=== PATIENT | male | born 2000 ===

== ENCOUNTER 2019-05-15 21:35 | Emergency (ER) | payer OTHER ==
--- NOTE | 2019-05-15 21:55 | ER Document Report ---
ED Medical Screen (RME) - General Chief Complaint: Testicular Pain Stated Complaint: GROIN PAIN Time Seen by Provider: 05/15/19 21:50 Notes: 18-year-old male with history of testicular torsion 4 years ago presents to the emergency department with chief complaint of right testicular pain x3 days. He said that the pain has gotten acutely worse today and is throbbing but is positional. He said the pain will go away "based on how I stand". Patient says that when he had his procedure done for his left torsion 4 years ago the urologist "tacked to them both down". Denies fevers or chills, nausea or vomiting, abnormal penile discharge, denies hematuria or urinary symptoms. Patient is sexually active. Overall well-appearing, testicles both with a vertical lie, no erythema or swelling, pain when palpating the right testicle and when elevating the scrotum. I have greeted and performed a rapid initial assessment of this patient. A comprehensive ED assessment and evaluation of the patient, analysis of test results and completion of medical decision making process will be conducted by an additional ED providers. Physical Exam - Vital signs Vitals: Temp Pulse Resp BP Pulse Ox 97.8 F 70 18 131/79 H 97 05/15/19 21:44 05/15/19 21:44 05/15/19 21:44 05/15/19 21:44 05/15/19 21:44 Course - Vital Signs Vital signs: Temp Pulse Resp BP Pulse Ox 97.8 F 70 18 131/79 H 97 05/15/19 21:44 05/15/19 21:44 05/15/19 21:44 05/15/19 21:44 05/15/19 21:44
--- NOTE | 2019-05-15 23:35 | RADIOLOGY REPORT (SQ) ---
EXAM DESCRIPTION: US SCROTUM COMPLETED DATE/TME: 05/15/2019 21:51 CLINICAL HISTORY: 18 years Male, R testicular pain, hx L torsion Comparison: None. LIMITATIONS: None. FINDINGS: 4.5-cm right testis, 4.8-cm left testis, 0.7 cm left epididymal cyst-spermatocele, remaining epididymides, 0.5 cm diameter small right varicocele, 0.4 cm diameter small left varicocele, scant testicular microlithiasis, and scrotal structures appear otherwise unremarkable in size, shape, echotexture, and vascularity. No evidence of testicular mass. No evidence of testicular torsion IMPRESSION: Small bilateral varicoceles. Normal testes.
[2019-05-16 01:03] LABS: ABSOLUTE EOSINOPHILS # (AUTO) 0.1 10^3/uL (0.0-0.6); ABSOLUTE LYMPHOCYTES (AUTO) 2.4 10^3/uL (0.5-4.7); ABSOLUTE MONOCYTES (AUTO) 0.4 10^3/uL (0.1-1.4); ABSOLUTE NEUT (AUTO) 3.9 10^3/uL (1.7-8.2); BASOPHILS % (AUTO) 0.4 % (0-2); EOSINOPHILS % (AUTO) 0.9 % (0-6); HEMATOCRIT 44.8 % (37.9-51.0); HEMOGLOBIN 14.7 g/dL (13.5-17.0); LYMPHOCYTES % (AUTO) 35.4 % (13-45); MEAN CORPUSCULAR HEMOGLOBIN 25.8 pg (27.0-33.4); MEAN CORPUSCULAR HGB CONC 32.9 g/dL (32.0-36.0); MEAN CORPUSCULAR VOLUME 78 fl (80-97); MONOCYTES % (AUTO) 6.2 % (3-13); PLATELET COUNT 218 10^3/uL (150-450); RED BLOOD COUNT 5.72 10^6/uL (4.35-5.55); RED CELL DISTRIBUTION WIDTH 13.2 % (11.5-14.0); SEGMENTED NEUTROPHILS % (AUTO) 57.1 % (42-78); TOTAL CELLS COUNTED % (AUTO) 100 %; WHITE BLOOD COUNT 6.9 10^3/uL (4.0-10.5)
[2019-05-16 01:26] LABS: ANION GAP 9 (5-19); BLOOD UREA NITROGEN 20 mg/dL (7-20); CALCIUM 9.9 mg/dL (8.4-10.2); CARBON DIOXIDE 27 mmol/L (22-30); CHLORIDE 104 mmol/L (98-107); GLUCOSE 82 mg/dL (75-110); POTASSIUM 4.4 mmol/L (3.6-5.0); SODIUM 139.6 mmol/L (137-145)
[2019-05-16 01:47] VITALS: BP 124/82
[2019-05-16 03:11] LABS: APPEARANCE,URINE CLEAR; BILIRUBIN,URINE NEGATIVE (NEGATIVE); COLOR,URINE YELLOW; GLUCOSE, URINE NEGATIVE (NEGATIVE); KETONES,URINE NEGATIVE (NEGATIVE); LEUKOCYTE ESTERASE,URINE NEGATIVE (NEGATIVE); NITRITE,URINE NEGATIVE (NEGATIVE); PROTEIN,URINE NEGATIVE (NEGATIVE); URINE SPECIFIC GRAVITY 1.027; UROBILINOGEN,URINE NEGATIVE mg/dL (<2.0)
[2019-05-16 04:20] LABS: CHLAM PCR NOT DETECTED (NOT DETECT)
== END 2019-05-16 05:00 | disposition left against medical advice (07) ==
LOC: ER 21:35
DX: Z53.21 Procedure and treatment not carried out due to patient leaving prior to being seen by health care provider (principal); N50.811 Right testicular pain
CPT/HCPCS: 36415; 76870; 80048; 81001; 85025; 87491; 87591; 93976; 99281